=== PATIENT | male | born 1945 | race Caucasian/White ===

== ENCOUNTER 2023-09-01 14:59 | Inpatient (IN) ==
[2023-09-01] MEDS ORDERED: traMADol 50 MG TABLET PO PRN (19:08)
[2023-09-01] MEDS ORDERED: ONDANSETRON 4 MG/2 ML VIAL IV PRN ×2 (19:08→21:08)
[2023-09-01] MEDS: morphine 4 MG/ML VIAL IV PRN (19:27)
[2023-09-01 19:31] LABS: Basophils # (Auto) 0.01 K/mcL (0.00-0.30); Basophils % (Auto) 0.1 % (0.0-2.0); Eosinophils # (Auto) 0 K/mcL (0.00-0.70); Eosinophils % (Auto) 0 % (0.0-7.0); Hematocrit 42.9 % (40.1-51.0); Lymphocytes % (Auto) 6.8 % (15.5-49.0); Mean Cell Volume 91.7 fL (80.0-100.0); Mean Corpuscular HGB Conc 32.6 g/dL (31.0-36.0); Mean Platelet Volume 9.1 fL (8.8-12.5); Monocytes # (Auto) 0.73 K/mcL (0.10-0.90); Monocytes % (Auto) 4.1 % (1.0-12.0); Neutrophils % (Auto) 88.8 % (38.0-78.0); Platelet Count 271 K/mcL (140-440); RBC 4.68 M/mcL (4.63-6.08); Red Cell Distribution Width 13.1 % (11.5-14.5); WBC 17.7 K/mcL (4.5-11.0)
[2023-09-01 19:49] LABS: ALT/SGPT 10 U/L (<40); AST/SGOT 17 U/L (<40); Albumin 4.1 gm/dL (3.2-5.2); Albumin/Globulin Ratio 1.4 (1.0-2.3); Alkaline Phosphatase 44 U/L (39-117); Bilirubin,Total 0.9 mg/dL (0.1-1.0); Blood Urea Nitrogen 16 mg/dL (8-23); Calcium 8.8 mg/dL (8.6-10.4); Carbon Dioxide 22 mmol/L (22-30); Chloride 100 mmol/L (96-108); Globulin 2.9 gm/dL (2.2-3.7); Glomerular Filtration Rate 98; Glucose 154 mg/dL (70-105)
[2023-09-01] MEDS ORDERED: fentaNYL 100 MCG/2 ML VIAL ONE ×2 (20:05→20:58)
[2023-09-01] MEDS ORDERED: PROPOFOL 200 MG/20 ML VIAL IV ONE ×2 (20:05→22:00)
[2023-09-01] MEDS ORDERED: LIDOCAINE 2% PF 5 ML VIAL ONE ×2 (20:05→22:00)
[2023-09-01] MEDS ORDERED: ROPIVACAINE HCL/PF 30 ML VIAL IJ ONE (20:08)
[2023-09-01] MEDS ORDERED: DEXAMETHASONE 10 MG/ML VIAL ONE (20:08)
[2023-09-01] MEDS ORDERED: KETAMINE 50 MG/ML Syringe IV ONE (20:19)
[2023-09-01] MEDS ORDERED: GLYCOPYRROLATE 0.2 MG/ML VIAL IV ONE (20:19)
[2023-09-01] MEDS ORDERED: ALBUTEROL SULFATE 60 PUFF INHALER ONE (20:19)
[2023-09-01] MEDS: ceFAZolin 2 GM in DEXTROSE 5% IN WATER 50 ML IV SCH (20:23)
[2023-09-01] MEDS ORDERED: ceFAZolin 1 GM VIAL ONE (20:29)
[2023-09-01] MEDS ORDERED: MAGNESIUM SULFATE 2 GM/50 ML BAG IV ONE (20:36)
[2023-09-01] MEDS: morphine 4 MG/ML VIAL ONE (20:57)
[2023-09-01] MEDS ORDERED: HYDROmorphone 0.5 MG/0.5 ML SYRINGE IV PRN (21:08)
[2023-09-01] MEDS ORDERED: PROMETHAZINE 25 MG/ML VIAL IV PRN (21:08)
[2023-09-01] MEDS ORDERED: NICOTINE POLACRILEX 2 MG GUM CHEW/PARK PRN (21:28)
[2023-09-01] MEDS ORDERED: FLUTICASONE PROPIONATE SPRAY.NAS NS PRN (21:30)
[2023-09-01] MEDS ORDERED: ACETAMINOPHEN 500 MG TABLET PO PRN (21:30)
[2023-09-01] MEDS: fentaNYL 100 MCG/2 ML VIAL IV PRN (22:08)
[2023-09-01] MEDS: LACTATED RINGERS 1,000 ML IV SCH (22:51)
[2023-09-01] MEDS: IPRATROPIUM/ALBUTEROL 3 ML AMPUL.NEB NEB ONE (22:51)
[2023-09-01] MEDS: ASPIRIN 81 MG TAB.CHEW CHEWED SCH (22:51)
[2023-09-01] MEDS: HYDROCODONE/APAP 7.5/325MG TABLET PO PRN (23:15)
[2023-09-01] MEDS: 0.9 % SODIUM CHLORIDE 10 ML SYRINGE IV SCH (23:18)
[2023-09-01] MEDS: SENNOSIDES 1 TABLET PO SCH (23:20)
[2023-09-01] MEDS: DOCUSATE SODIUM 100 MG CAPSULE PO SCH (23:20)
[2023-09-01] MEDS: NICOTINE 14 MG PATCH TOPICAL SCH (23:21)
[2023-09-02] MEDS: IPRATROPIUM/ALBUTEROL 3 ML AMPUL.NEB NEB PRN (00:52)
[2023-09-02] MEDS: ceFAZolin 1 GM VIAL IV SCH (04:00)
[2023-09-02 06:54] LABS: Basophils # (Auto) 0 K/mcL (0.00-0.30); Basophils % (Auto) 0 % (0.0-2.0); Eosinophils # (Auto) 0 K/mcL (0.00-0.70); Eosinophils % (Auto) 0 % (0.0-7.0); Hematocrit 39.4 % (40.1-51.0); Lymphocytes # (Auto) 0.77 K/mcL (1.50-4.80); Lymphocytes % (Auto) 6.2 % (15.5-49.0); Mean Platelet Volume 10.1 fL (8.8-12.5); Monocytes # (Auto) 0.17 K/mcL (0.10-0.90); Monocytes % (Auto) 1.4 % (1.0-12.0); Neutrophils % (Auto) 92.2 % (38.0-78.0); Platelet Count 251 K/mcL (140-440); RBC 4.33 M/mcL (4.63-6.08); Red Cell Distribution Width 13.4 % (11.5-14.5); WBC 12.5 K/mcL (4.5-11.0)
[2023-09-02 07:17] LABS: ALT/SGPT 13 U/L (<40); AST/SGOT 16 U/L (<40); Albumin/Globulin Ratio 1.4 (1.0-2.3); Alkaline Phosphatase 39 U/L (39-117); Bilirubin,Total 0.7 mg/dL (0.1-1.0); Blood Urea Nitrogen 16 mg/dL (8-23); Calcium 8.4 mg/dL (8.6-10.4); Carbon Dioxide 23 mmol/L (22-30); Chloride 99 mmol/L (96-108); Globulin 2.8 gm/dL (2.2-3.7); Glomerular Filtration Rate 92; Glucose 186 mg/dL (70-105)
[2023-09-02] MEDS: amLODIPine 10 MG TABLET PO SCH (08:22)
[2023-09-02] MEDS: ASPIRIN 325 MG ENTERIC COATED TABLET PO SCH (08:22)
[2023-09-02] MEDS: DULoxetine 30 MG CAPSULE PO SCH (08:22)
[2023-09-02] MEDS: traMADol 50 MG TABLET PO PRN (08:22)
[2023-09-02] MEDS: TAMSULOSIN 0.4 MG CAPSULE PO SCH (08:23)
[2023-09-02] MEDS: SPIRONOLACTONE 25 MG TABLET PO SCH (08:23)
[2023-09-02] MEDS: IPRATROPIUM/ALBUTEROL 3 ML AMPUL.NEB NEB SCH (13:15)
[2023-09-02] MEDS: METHOCARBAMOL 500 MG TABLET PO PRN (15:06)
[2023-09-02] MEDS: CALCIUM CARBONATE 500 MG TAB.CHEW CHEWED PRN (17:53)
[2023-09-03 06:39] LABS: Basophils # (Auto) 0.01 K/mcL (0.00-0.30); Basophils % (Auto) 0.1 % (0.0-2.0); Eosinophils # (Auto) 0.04 K/mcL (0.00-0.70); Eosinophils % (Auto) 0.2 % (0.0-7.0); Hematocrit 35.4 % (40.1-51.0); Hemoglobin 11.3 g/dL (13.7-17.5); Lymphocytes # (Auto) 2.34 K/mcL (1.50-4.80); Lymphocytes % (Auto) 12.5 % (15.5-49.0); Mean Cell Volume 93.2 fL (80.0-100.0); Mean Corpuscular HGB Conc 31.9 g/dL (31.0-36.0); Mean Platelet Volume 9.7 fL (8.8-12.5); Monocytes # (Auto) 1.52 K/mcL (0.10-0.90); Monocytes % (Auto) 8.1 % (1.0-12.0); Neutrophils % (Auto) 78.7 % (38.0-78.0); Platelet Count 224 K/mcL (140-440); Red Cell Distribution Width 13.5 % (11.5-14.5); WBC 18.7 K/mcL (4.5-11.0)
[2023-09-03 07:24] LABS: ALT/SGPT 12 U/L (<40); AST/SGOT 25 U/L (<40); Albumin 3.7 gm/dL (3.2-5.2); Albumin/Globulin Ratio 1.5 (1.0-2.3); Alkaline Phosphatase 32 U/L (39-117); Bilirubin,Total 0.4 mg/dL (0.1-1.0); Blood Urea Nitrogen 19 mg/dL (8-23); Calcium 8.8 mg/dL (8.6-10.4); Carbon Dioxide 26 mmol/L (22-30); Chloride 100 mmol/L (96-108); Globulin 2.5 gm/dL (2.2-3.7); Glomerular Filtration Rate 98; Glucose 137 mg/dL (70-105)
[2023-09-03] MEDS: ACETAMINOPHEN 325 MG TABLET PO PRN (19:40)
[2023-09-03] MEDS: ROSUVASTATIN 10 MG TABLET PO SCH (21:21)
[2023-09-04 06:38] LABS: Basophils # (Auto) 0.03 K/mcL (0.00-0.30); Basophils % (Auto) 0.2 % (0.0-2.0); Eosinophils # (Auto) 0.26 K/mcL (0.00-0.70); Eosinophils % (Auto) 1.9 % (0.0-7.0); Hematocrit 33.2 % (40.1-51.0); Hemoglobin 10.9 g/dL (13.7-17.5); Lymphocytes % (Auto) 19.4 % (15.5-49.0); Mean Cell Volume 92.5 fL (80.0-100.0); Mean Corpuscular HGB Conc 32.8 g/dL (31.0-36.0); Mean Platelet Volume 9.9 fL (8.8-12.5); Monocytes # (Auto) 1.09 K/mcL (0.10-0.90); Monocytes % (Auto) 8.1 % (1.0-12.0); Neutrophils % (Auto) 70.2 % (38.0-78.0); Platelet Count 208 K/mcL (140-440); RBC 3.59 M/mcL (4.63-6.08); Red Cell Distribution Width 13.2 % (11.5-14.5); WBC 13.4 K/mcL (4.5-11.0)
[2023-09-04 06:53] LABS: ALT/SGPT 15 U/L (<40); AST/SGOT 23 U/L (<40); Albumin 3.4 gm/dL (3.2-5.2); Albumin/Globulin Ratio 1.3 (1.0-2.3); Alkaline Phosphatase 33 U/L (39-117); Bilirubin,Total 0.8 mg/dL (0.1-1.0); Blood Urea Nitrogen 18 mg/dL (8-23); Calcium 8.4 mg/dL (8.6-10.4); Carbon Dioxide 28 mmol/L (22-30); Chloride 98 mmol/L (96-108); Globulin 2.6 gm/dL (2.2-3.7); Glomerular Filtration Rate 98; Glucose 124 mg/dL (70-105)
[2023-09-04] MEDS: ALBUTEROL SULFATE 60 PUFF INHALER INH PRN (08:25)
[2023-09-04] MEDS: MAG HYDROX/AL HYDROX/SIMETH 30 ML ORAL.SUSP PO ONE (16:33)
[2023-09-04] MEDS: OMEPRAZOLE 20 MG CAPSULE PO ONE (16:33)
[2023-09-05 06:05] LABS: Basophils # (Auto) 0.03 K/mcL (0.00-0.30); Basophils % (Auto) 0.2 % (0.0-2.0); Eosinophils # (Auto) 0.29 K/mcL (0.00-0.70); Eosinophils % (Auto) 2.3 % (0.0-7.0); Hematocrit 33.3 % (40.1-51.0); Hemoglobin 10.9 g/dL (13.7-17.5); Lymphocytes # (Auto) 2.05 K/mcL (1.50-4.80); Lymphocytes % (Auto) 16.6 % (15.5-49.0); Mean Cell Volume 91.7 fL (80.0-100.0); Mean Corpuscular HGB Conc 32.7 g/dL (31.0-36.0); Monocytes # (Auto) 0.98 K/mcL (0.10-0.90); Monocytes % (Auto) 7.9 % (1.0-12.0); Neutrophils % (Auto) 72.7 % (38.0-78.0); Platelet Count 232 K/mcL (140-440); RBC 3.63 M/mcL (4.63-6.08); Red Cell Distribution Width 13.2 % (11.5-14.5); WBC 12.4 K/mcL (4.5-11.0)
[2023-09-05 06:21] LABS: ALT/SGPT 28 U/L (<40); AST/SGOT 27 U/L (<40); Albumin 3.3 gm/dL (3.2-5.2); Albumin/Globulin Ratio 1.2 (1.0-2.3); Alkaline Phosphatase 34 U/L (39-117); Bilirubin,Total 0.8 mg/dL (0.1-1.0); Blood Urea Nitrogen 19 mg/dL (8-23); Calcium 8.3 mg/dL (8.6-10.4); Carbon Dioxide 27 mmol/L (22-30); Chloride 99 mmol/L (96-108); Globulin 2.8 gm/dL (2.2-3.7); Glomerular Filtration Rate 98; Glucose 125 mg/dL (70-105)
[2023-09-05] MEDS: TIOTROPIUM BROMIDE 18 MCG INHALANT INH SCH (09:26)
[2023-09-05] MEDS: SALMETEROL XINAFOATE 1 PUFF INHALER INH SCH (09:26)
[2023-09-05] MEDS: POTASSIUM CHLORIDE 20 MEQ TABLET PO ONE (09:42)
[2023-09-05] MEDS: POTASSIUM CHLORIDE 20 MEQ TABLET PO SCH ×2 (09:49→12:00)
== END 2023-09-06 14:15 | DRG 480 ==
LOC: MEDSUR 17:52
PROVIDERS: ADMIT Student in an Organized Health Care Education/Training Program; ATTEND Student in an Organized Health Care Education/Training Program